=== PATIENT | female | born 1935 | race Two or more races ===

== ENCOUNTER 2020-04-12 15:40 | Inpatient (IN) | payer MEDICARE, MEDICAID ==
[~2020-04-12] VITALS: Ht 152.4 cm; Wt 66.2 kg
[2020-04-12] MEDS ORDERED: SODIUM CHLORIDE 0.9% 1000ML BAG (SEPSIS BOLUS) IV ONE (16:15)
[2020-04-12 16:52] LABS: BASOPHILS % 0.7 % (0.0-2.0); EOSINOPHILS % 1.6 % (0.0-5.0); HEMATOCRIT. 31.6 % (36.0-48.0); HEMOGLOBIN. 10.6 g/dL (12.0-16.0); LYMPHOCYTES % 14.5 % (20.0-50.0); MEAN CORPUSCULAR HEMOGLOBIN 33.3 pg (28.0-32.0); MEAN CORPUSCULAR VOLUME 99.3 fL (81.0-99.0); MEAN PLATELET VOLUME 10.4 fl (7.4-10.4); MONOCYTES % 9.4 % (2.0-8.0); NEUTROPHILS % 73.8 % (40.0-76.0); PLATELET 180 x1000/uL (130-400); RED BLOOD CELL COUNT 3.18 mill/uL (4.2-5.4); RED CELL DISTRIBUTION WIDTH 14.9 % (11.6-14.6)
[2020-04-12 16:59] LABS: CHLORIDE 101 mEq/L (98-107)
[2020-04-12 17:02] LABS: INR 0.9; PROTHROMBIN TIME 9.7 sec (9.6-11.0)
[2020-04-12] MEDS ORDERED: PIPERACILLIN/TAZ 3.375G PREMIX 50 ML IV NR (17:30)
[2020-04-12] MEDS ORDERED: VANCOMYCIN 1 G PREMIX 200 ML IV SCH (17:30)
[2020-04-12 17:42] LABS: CLARITY URINE CLOUDY (CLEAR); COLOR URINE DARK YELLOW (YELLOW); KETONES URINE TRACE (NEGATIVE); LEUKOCYTE ESTERASE URINE 2+ (NEGATIVE); NITRITE URINE NEGATIVE (NEGATIVE); OCCULT BLOOD URINE 1+ (NEGATIVE); PROTEIN URINE 3+ (NEGATIVE); SPECIFIC GRAVITY URINE 1.027 (1.005-1.030); UROBILINOGEN URINE 0.2 E.U./dL (0.2-1.0)
[2020-04-12] MEDS ORDERED: ACETAMINOPHEN 325MG TABLET PO PRN (18:15)
[2020-04-12] MEDS ORDERED: TRAZODONE HCL 50MG TABLET PO PRN (18:15)
[2020-04-12] MEDS ORDERED: ONDANSETRON HCL 4MG/2ML INJ IV PRN (18:15)
[2020-04-12] MEDS: HEPARIN 5000 UNITS/ML VIAL SUBCUT SCH (21:00)
[2020-04-13] VITALS (12 sets, daily range): BP systolic 92–140; BP diastolic 48–68
[2020-04-13] MEDS ORDERED: PIPERACILLIN/TAZOBACTAM 3.375 G in DEXTROSE 5% WATER 50 ML IV SCH
[2020-04-13] MEDS ORDERED: DEXTROSE 50% WATER 50ML SYRINGE IV PRN ×2 (01:00)
[2020-04-13] MEDS ORDERED: HALOPERIDOL LACTATE 5MG/ML VIAL IM PRN (01:00)
[2020-04-13] MEDS ORDERED: PIPERACILLIN/TAZ 2.25G PREMIX 50 ML IV SCH (02:00)
[2020-04-13] MEDS ORDERED: ONDA4TAB11 GT (04:46)
[2020-04-13] MEDS ORDERED: ASPI-1497 PO (04:46)
[2020-04-13] MEDS ORDERED: LEVO150T8 GT (04:46)
[2020-04-13] MEDS ORDERED: ATOR80TA PO (04:46)
[2020-04-13] MEDS ORDERED: MIDO5TAB4 GT (04:46)
[2020-04-13] MEDS ORDERED: HJ10 IJ (04:46)
[2020-04-13] MEDS ORDERED: CHOL400D7 GT (04:46)
[2020-04-13] MEDS ORDERED: METO25TA6 GT (04:46)
[2020-04-13] MEDS ORDERED: BETH5TAB10 PO (04:46)
[2020-04-13] MEDS ORDERED: CLOP75TA15 GT (04:46)
[2020-04-13] MEDS ORDERED: SITA25TA3 GT (04:46)
[2020-04-13] MEDS ORDERED: ISOS10TA2 GT (04:46)
[2020-04-13] MEDS ORDERED: AMLO10TA80 PO (04:46)
[2020-04-13] MEDS ORDERED: CLON0.1T GT (04:46)
[2020-04-13] MEDS: INSULIN LISPRO 100 UNITS/ML SUBCUT SCH ×4 (06:33→21:00)
[2020-04-13] MEDS: BLOOD SUGAR DIAGNOSTIC STRIP TEST SCH ×4 (06:33→21:00)
[2020-04-13] MEDS: MIDODRINE HCL 5MG TABLET PO SCH ×3 (06:49→22:06)
[2020-04-13 07:03] LABS: CHLORIDE 104 mEq/L (98-107)
[2020-04-13 07:11] LABS: BASOPHILS % 0.5 % (0.0-2.0); HEMATOCRIT. 27.2 % (36.0-48.0); HEMOGLOBIN. 9.2 g/dL (12.0-16.0); LYMPHOCYTES % 15.3 % (20.0-50.0); MEAN CORPUSCULAR HEMOGLOBIN 33.2 pg (28.0-32.0); MEAN CORPUSCULAR VOLUME 98.7 fL (81.0-99.0); MEAN PLATELET VOLUME 10.5 fl (7.4-10.4); MONOCYTES % 11.9 % (2.0-8.0); NEUTROPHILS % 70.3 % (40.0-76.0); PLATELET 141 x1000/uL (130-400); RED BLOOD CELL COUNT 2.76 mill/uL (4.2-5.4); RED CELL DISTRIBUTION WIDTH 14.8 % (11.6-14.6)
[2020-04-13] MEDS ORDERED: VANCOMYCIN 500 MG PREMIX 100 ML IV SCH (11:00)
[2020-04-13] MEDS: PIPERACILLIN/TAZOBACTAM 2.25 G in DEXTROSE 5% WATER 50 ML IV SCH ×2 (11:11→16:53)
[2020-04-13] MEDS ORDERED: POTASSIUM CHLORIDE 20MEQ/PACKET PO NR (11:30)
[2020-04-13] MEDS: HEPARIN 5000 UNITS/ML VIAL SUBCUT SCH ×2 (11:34→22:06)
[2020-04-13 12:49] LABS: HEPATITIS B SURFACE AB < 3.1 mIU/mL
[2020-04-13 13:00] LABS: HEPATITIS B SURFACE ANTIGEN NEGATIVE
[2020-04-13 13:30] LABS: HEPATITIS A AB IGM NEGATIVE (NEGATIVE)
[2020-04-13] MEDS ORDERED: HEPARIN SODIUM 1,000 UNIT/1ML VIAL IV NR (16:15)
[2020-04-13] MEDS: NYSTATIN POWDER 15GM TOP SCH ×2 (16:52→22:06)
[2020-04-14] VITALS (12 sets, daily range): BP systolic 105–156; BP diastolic 40–72
[2020-04-14] MEDS: PIPERACILLIN/TAZOBACTAM 2.25 G in DEXTROSE 5% WATER 50 ML IV SCH ×2 (02:01→10:31)
[2020-04-14] MEDS: BLOOD SUGAR DIAGNOSTIC STRIP TEST SCH ×4 (06:11→21:00)
[2020-04-14] MEDS: MIDODRINE HCL 5MG TABLET PO SCH (06:17)
[2020-04-14 07:55] LABS: BASOPHILS % 0.6 % (0.0-2.0); CHLORIDE 101 mEq/L (98-107); EOSINOPHILS % 1.7 % (0.0-5.0); HEMATOCRIT. 28.8 % (36.0-48.0); HEMOGLOBIN. 9.4 g/dL (12.0-16.0); LYMPHOCYTES % 12.8 % (20.0-50.0); MEAN CORPUSCULAR HEMOGLOBIN 32.7 pg (28.0-32.0); MEAN CORPUSCULAR VOLUME 99.7 fL (81.0-99.0); MEAN PLATELET VOLUME 10.2 fl (7.4-10.4); MONOCYTES % 12.8 % (2.0-8.0); NEUTROPHILS % 72.1 % (40.0-76.0); PLATELET 162 x1000/uL (130-400); RED BLOOD CELL COUNT 2.89 mill/uL (4.2-5.4); RED CELL DISTRIBUTION WIDTH 14.7 % (11.6-14.6)
[2020-04-14 08:02] LABS: LDL CHOLESTEROL 68 mg/dL (5-100)
[2020-04-14 08:03] LABS: HDL CHOLESTEROL 21 mg/dL (40-59)
[2020-04-14 08:04] LABS: T4 FREE 1.08 ng/dL (0.76-1.46)
[2020-04-14 08:09] LABS: TOTAL IRON BINDING CAPACITY 196 ug/dL (250-450)
[2020-04-14] MEDS: INSULIN LISPRO 100 UNITS/ML SUBCUT SCH ×4 (10:32→21:00)
[2020-04-14] MEDS: NYSTATIN POWDER 15GM TOP SCH ×4 (10:35→18:22)
[2020-04-14] MEDS: HEPARIN 5000 UNITS/ML VIAL SUBCUT SCH ×2 (10:35→22:06)
[2020-04-14 10:59] LABS: VITAMIN B12 SERUM 724 pg/mL (211-911)
[2020-04-14] MEDS: LEVOTHYROXINE SODIUM 50MCG TABLET PO SCH (11:00)
[2020-04-15] VITALS (11 sets, daily range): BP systolic 119–157; BP diastolic 51–71
[2020-04-15] MEDS: INSULIN LISPRO 100 UNITS/ML SUBCUT SCH ×2 (06:31→11:08)
[2020-04-15] MEDS: BLOOD SUGAR DIAGNOSTIC STRIP TEST SCH ×2 (06:31→11:02)
[2020-04-15] MEDS: LEVOTHYROXINE SODIUM 50MCG TABLET PO SCH (06:37)
[2020-04-15 07:04] LABS: BASOPHILS % 0.5 % (0.0-2.0); EOSINOPHILS % 1.6 % (0.0-5.0); HEMATOCRIT. 28.3 % (36.0-48.0); HEMOGLOBIN. 9.3 g/dL (12.0-16.0); LYMPHOCYTES % 17.1 % (20.0-50.0); MEAN CORPUSCULAR HEMOGLOBIN 32.7 pg (28.0-32.0); MEAN CORPUSCULAR VOLUME 99.6 fL (81.0-99.0); MEAN PLATELET VOLUME 9.6 fl (7.4-10.4); MONOCYTES % 13.8 % (2.0-8.0); PLATELET 175 x1000/uL (130-400); RED BLOOD CELL COUNT 2.84 mill/uL (4.2-5.4); RED CELL DISTRIBUTION WIDTH 15.1 % (11.6-14.6)
[2020-04-15 07:10] LABS: CHLORIDE 98 mEq/L (98-107)
[2020-04-15] MEDS ORDERED: HEPARIN SODIUM 1,000 UNIT/1ML VIAL IV NR (08:30)
[2020-04-15] MEDS: HEPARIN 5000 UNITS/ML VIAL SUBCUT SCH ×2 (09:17→20:56)
[2020-04-15] MEDS: NYSTATIN POWDER 15GM TOP SCH ×3 (11:02→17:08)
== END 2020-04-15 21:40 | DRG 314 ==
LOC: ER 15:40 → 3WST 17:50 → EDBEDREQ 17:55 → ENRESERV 21:09
PROVIDERS: ADMIT Family Medicine Adult Medicine; ATTEND Family Medicine Adult Medicine
PROC: 5A1D70Z Performance of Urinary Filtration, Intermittent, Less than 6 Hours Per Day (ICD-10-PCS; principal; 2020-04-13)
PROC: 5A1D70Z Performance of Urinary Filtration, Intermittent, Less than 6 Hours Per Day (ICD-10-PCS; 2020-04-14)
DX: I95.9 Hypotension, unspecified (principal); E43 Unspecified severe protein-calorie malnutrition; N18.6 End stage renal disease; G93.41 Metabolic encephalopathy; I13.2 Hypertensive heart and chronic kidney disease with heart failure and with stage 5 chronic kidney disease, or end stage renal disease; N39.0 Urinary tract infection, site not specified; R65.10 Systemic inflammatory response syndrome (SIRS) of non-infectious origin without acute organ dysfunction; E03.9 Hypothyroidism, unspecified; E11.22 Type 2 diabetes mellitus with diabetic chronic kidney disease; E78.5 Hyperlipidemia, unspecified; E87.6 Hypokalemia; F17.200 Nicotine dependence, unspecified, uncomplicated; I25.10 Atherosclerotic heart disease of native coronary artery without angina pectoris; I50.9 Heart failure, unspecified; I71.4 Abdominal aortic aneurysm, without rupture; N28.89 Other specified disorders of kidney and ureter; R13.10 Dysphagia, unspecified; D64.9 Anemia, unspecified; N26.1 Atrophy of kidney (terminal); B36.9 Superficial mycosis, unspecified; E66.9 Obesity, unspecified; G89.29 Other chronic pain; M54.5 Low back pain; Z86.16 Personal history of COVID-19; Z88.2 Allergy status to sulfonamides; Z90.710 Acquired absence of both cervix and uterus; Z95.1 Presence of aortocoronary bypass graft; Z93.1 Gastrostomy status; Z95.5 Presence of coronary angioplasty implant and graft; Z99.2 Dependence on renal dialysis; Z88.8 Allergy status to other drugs, medicaments and biological substances; Z68.28 Body mass index [BMI] 28.0-28.9, adult; Z79.84 Long term (current) use of oral hypoglycemic drugs; Z79.899 Other long term (current) drug therapy
CPT/HCPCS: 36415; 70551; 71045; 71250; 74176; 80053; 80061; 81003; 82270; 82607; 82962; 83036; 83540; 83550; 83605; 83735; 84134; 84145; 84439; 84443; 84481; 84484; 85025; 85044; 86705; 86706; 86709; 86803; 87340; 93005; 93306; 96365; 99285; A6261; J1644; J1815; J2543; J3370; J7030; J7060